=== PATIENT | female | born 1945 | race Caucasian/White ===

== ENCOUNTER 2016-06-05 11:16 | Emergency (ER) | payer MEDICARE, OTHER ==
[2016-06-05] MEDS ORDERED: HYDROCODONE/ACETAMINOPHEN 5/325MG TABLET ONE (11:53)
--- NOTE | 2016-06-05 12:03 | RAD ---
OS CALCIS LEFT HISTORY: Pain after stepping off porch this morning. Initial encounter. COMPARISONS: 01/16/2016 FINDINGS: Axial and lateral views of the left calcaneus do not show fracture, dislocation, radiopaque foreign body or soft tissue deformity. There is a stable appearance to the plantar and Achilles enthesophytes. IMPRESSION: No fracture or dislocation.
== END 2016-06-05 13:03 | disposition home or self-care (01) ==
LOC: ED 11:16
DX: M79.672 Pain in left foot (principal); I10 Essential (primary) hypertension; W10.9XXA Fall (on) (from) unspecified stairs and steps, initial encounter; Y92.008 Other place in unspecified non-institutional (private) residence as the place of occurrence of the external cause
CPT/HCPCS: 73650; 99283 ×2; A9270